=== PATIENT | female | born 1990 | race Caucasian/White ===

== ENCOUNTER 2020-02-23 05:05 | Inpatient (IN) | payer MEDICAID ==
[~2020-02-23] VITALS: Ht 160 cm; Wt 67.7 kg
[2020-02-23 09:06] LABS: BASOPHILS % (AUTO) 0.2 % (0.0-2.0); EOSINOPHILS % (AUTO) 0.3 % (1.0-6.0); HEMATOCRIT 38.3 % (36-46); HEMOGLOBIN 12.9 g/dL (12.0-16.0); LYMPHOCYTES # (AUTO) 1.8 K/uL (1.0-4.8); LYMPHOCYTES % (AUTO) 21.6 % (22.0-44.0); MEAN CORPUSCULAR HEMOGLOBIN 30.6 pg (26.0-34.0); MEAN CORPUSCULAR HGB CONC 33.6 G/dL (31.0-37.0); MEAN CORPUSCULAR VOLUME 91 fL (80-100); MONOCYTES # (AUTO) 0.5 K/uL (0.1-1.0); MONOCYTES % (AUTO) 5.7 % (2.0-9.0); NEUTROPHILS # (AUTO) 6.1 K/uL (1.8-7.7); NEUTROPHILS % (AUTO) 72.2 % (40.0-70.0); PLATELET COUNT (AUTO) 285 K/uL (150-450); RED BLOOD CELL COUNT(AUTO) 4.22 MIL/uL (4.00-5.20)
[2020-02-23 09:19] LABS: ANION GAP 11 mmol/L (8-16); CALCIUM, TOTAL 8.9 mg/dL (8.8-10.5); CARBON DIOXIDE 26 mmol/L (22-29); CHLORIDE 104 mmol/L (98-107); CREATININE 0.54 mg/dL (0.60-1.30); GLOMERULAR FILTR. RATE CALC > 60 mL/min (>60); GLUCOSE,RANDOM 103 mg/dL (70-110); SODIUM SERUM 141 mmol/L (136-145); UREA NITROGEN, BLOOD 11 mg/dL (7-18)
[2020-02-23 09:33] LABS: ALANINE AMINOTRANSFERASE 72 U/L (12-78); ALKALINE PHOSPHATASE 74 U/L (46-116); ASPARTATE AMINOTRANSFERASE 102 U/L (15-37); HCG,QUANTITATIVE < 1 mIU/mL (0-6); TOTAL PROTEIN, SERUM 7.2 g/dL (6.4-8.2)
[2020-02-23] MEDS ORDERED: OLANZapine 5 MG RAPDIS TABLET PO PRN (12:00)
[2020-02-23] MEDS ORDERED: LOPERAMIDE HCL 2 MG CAPSULE PO PRN (12:00)
[2020-02-23] MEDS ORDERED: GuaiFENesin/D-METHORPHAN [SUGAR-FREE] 200-20MG/10 ML SYRUP UDCUP PO PRN (12:00)
[2020-02-23] MEDS ORDERED: PROMETHAZINE HCL 25 MG TABLET PO PRN (12:00)
[2020-02-23] MEDS ORDERED: TUBERCULIN, PURIFIED PROTEIN DERIVATIVE 5 TU/0.1 ML SYRINGE ID ONE (12:00)
[2020-02-23] MEDS ORDERED: MAG HYDROX/AL HYDROX/SIMETH ES 30 ML SUSPENSION UDCUP PO PRN (12:00)
[2020-02-23] MEDS ORDERED: ACETAMINOPHEN 325 MG TABLET PO PRN (12:00)
[2020-02-23] MEDS ORDERED: MAGNESIUM HYDROXIDE SUSPENSION 30 ML UDCUP PO PRN (12:00)
[2020-02-23] MEDS ORDERED: HydrOXYzine PAMOATE 50 MG CAPSULE PO PRN (12:00)
[2020-02-23] MEDS ORDERED: ZOLPIDEM TARTRATE 10 MG TABLET PO PRN (12:00)
[2020-02-23] MEDS ORDERED: POTASSIUM CHLORIDE 20 MEQ ER TABLET PO ONE (13:30)
[2020-02-23 14:24] LABS: AMPHET/METH SCREEN,URINE POSITIVE (NEGATIVE); BARBITURATE SCREEN, URINE NEGATIVE (NEGATIVE); BENZODIAZEPINES SCREEN,URINE NEGATIVE (NEGATIVE); CANNABINOID SCREEN,URINE POSITIVE (NEGATIVE); COCAINE SCREEN,URINE NEGATIVE (NEGATIVE); METHADONE SCREEN, URINE NEGATIVE (NEGATIVE); OPIATE SCREEN,URINE NEGATIVE (NEGATIVE)
[2020-02-23 14:25] LABS: PHENCYCLIDINE SCREEN,URINE NEGATIVE (NEGATIVE)
[2020-02-23] MEDS ORDERED: OLANZapine 5 MG RAPDIS TABLET PO SCH (21:00)
[2020-02-23 22:34] VITALS: BP 121/66
[2020-02-23] MEDS: LITHIUM CARBONATE 300 MG CAPSULE PO SCH (22:48)
[2020-02-23] MEDS: THIAMINE 100 MG TABLET PO SCH (22:48)
[2020-02-24 00:34] VITALS: BP 118/68
[2020-02-24] MEDS: MULTIVITAMINS WITH MINERALS, THERAPEUTIC TABLET PO SCH (09:01)
[2020-02-24] MEDS: FOLIC ACID 1 MG TABLET PO SCH (09:01)
[2020-02-24] MEDS: THIAMINE 100 MG TABLET PO SCH ×2 (09:01→16:39)
[2020-02-24] MEDS: FLUoxetine HCL 20 MG CAPSULE PO SCH (09:01)
[2020-02-24] MEDS: NALTREXONE HCL 50 MG TABLET PO SCH (09:02)
[2020-02-24] MEDS: NICOTINE 21 MG/24 HOUR PATCH TD SCH (09:02)
[2020-02-24] MEDS: LITHIUM CARBONATE 300 MG CAPSULE PO SCH ×2 (09:05→16:39)
[2020-02-24 09:20] LABS: ANION GAP 9 mmol/L (8-16); CALCIUM, TOTAL 8.7 mg/dL (8.8-10.5); CARBON DIOXIDE 26 mmol/L (22-29); CHLORIDE 107 mmol/L (98-107); CHOL/HDL RATIO 2.8 (3.9-5.7); CHOLESTEROL 104 mg/dL (131-200); CREATININE 0.59 mg/dL (0.60-1.30); GLOMERULAR FILTR. RATE CALC > 60 mL/min (>60); GLUCOSE,RANDOM 93 mg/dL (70-110); HDL CHOLESTEROL 37 mg/dL (40-60); LDL CHOL (CALC.) 53 mg/dL (0-130); POTASSIUM 3.2 mmol/L (3.5-5.1); SODIUM SERUM 142 mmol/L (136-145); THYROID STIMULATING HORMONE 0.54 uIU/mL (0.36-3.74); TRIGLYCERIDES 69 mg/dL (15-150); UREA NITROGEN, BLOOD 9 mg/dL (7-18)
[2020-02-24] MEDS ORDERED: POTASSIUM CHLORIDE 20 MEQ ER TABLET PO ONE (12:30)
[2020-02-24 16:10] VITALS: BP 106/63
[2020-02-24] MEDS: OLANZapine 10 MG RAPDIS TABLET PO SCH (20:48)
[2020-02-25 00:16] VITALS: BP 140/67
[2020-02-25 08:20] VITALS: BP 104/62
[2020-02-25] MEDS: LITHIUM CARBONATE 300 MG CAPSULE PO SCH ×2 (08:30→16:33)
[2020-02-25] MEDS: MULTIVITAMINS WITH MINERALS, THERAPEUTIC TABLET PO SCH (08:30)
[2020-02-25] MEDS: NALTREXONE HCL 50 MG TABLET PO SCH (08:30)
[2020-02-25] MEDS: FLUoxetine HCL 20 MG CAPSULE PO SCH (08:30)
[2020-02-25] MEDS: THIAMINE 100 MG TABLET PO SCH ×2 (08:31→16:33)
[2020-02-25] MEDS: FOLIC ACID 1 MG TABLET PO SCH (08:31)
[2020-02-25] MEDS: NICOTINE 21 MG/24 HOUR PATCH TD SCH (08:37)
[2020-02-25 16:28] VITALS: BP 103/60
[2020-02-25] MEDS: OLANZapine 10 MG RAPDIS TABLET PO SCH (20:15)
[2020-02-26 00:40] VITALS: BP 117/72
[2020-02-26 08:11] VITALS: BP 108/65
[2020-02-26] MEDS: LITHIUM CARBONATE 300 MG CAPSULE PO SCH ×2 (08:25→16:19)
[2020-02-26] MEDS: FOLIC ACID 1 MG TABLET PO SCH (08:25)
[2020-02-26] MEDS: MULTIVITAMINS WITH MINERALS, THERAPEUTIC TABLET PO SCH (08:25)
[2020-02-26] MEDS: FLUoxetine HCL 20 MG CAPSULE PO SCH (08:26)
[2020-02-26] MEDS: NALTREXONE HCL 50 MG TABLET PO SCH (08:26)
[2020-02-26] MEDS: THIAMINE 100 MG TABLET PO SCH ×2 (08:26→16:19)
[2020-02-26] MEDS: NICOTINE 21 MG/24 HOUR PATCH TD SCH (08:31)
[2020-02-26 16:32] VITALS: BP 118/49
[2020-02-26] MEDS: OLANZapine 10 MG RAPDIS TABLET PO SCH (20:05)
[2020-02-26] MEDS: LORazepam 2 MG TABLET PO PRN (22:27)
[2020-02-27 00:04] VITALS: BP 109/68
[2020-02-27 08:20] VITALS: BP 108/70
[2020-02-27] MEDS: THIAMINE 100 MG TABLET PO SCH ×2 (08:34→16:13)
[2020-02-27] MEDS: FOLIC ACID 1 MG TABLET PO SCH (08:34)
[2020-02-27] MEDS: LITHIUM CARBONATE 300 MG CAPSULE PO SCH ×2 (08:34→16:13)
[2020-02-27] MEDS: NALTREXONE HCL 50 MG TABLET PO SCH (08:34)
[2020-02-27] MEDS: MULTIVITAMINS WITH MINERALS, THERAPEUTIC TABLET PO SCH (08:34)
[2020-02-27] MEDS: FLUoxetine HCL 20 MG CAPSULE PO SCH (08:34)
[2020-02-27] MEDS: NICOTINE 21 MG/24 HOUR PATCH TD SCH (08:39)
[2020-02-27 16:58] VITALS: BP 102/65
[2020-02-27] MEDS: OLANZapine 10 MG RAPDIS TABLET PO SCH (20:21)
[2020-02-28 03:20] VITALS: BP 122/77
[2020-02-28 08:28] VITALS: BP 108/62
[2020-02-28] MEDS: LITHIUM CARBONATE 300 MG CAPSULE PO SCH ×2 (08:29→16:05)
[2020-02-28] MEDS: NALTREXONE HCL 50 MG TABLET PO SCH (08:30)
[2020-02-28] MEDS: FOLIC ACID 1 MG TABLET PO SCH (08:30)
[2020-02-28] MEDS: MULTIVITAMINS WITH MINERALS, THERAPEUTIC TABLET PO SCH (08:30)
[2020-02-28] MEDS: THIAMINE 100 MG TABLET PO SCH ×2 (08:30→16:05)
[2020-02-28] MEDS: FLUoxetine HCL 20 MG CAPSULE PO SCH (08:30)
[2020-02-28] MEDS: NICOTINE 21 MG/24 HOUR PATCH TD SCH (08:36)
[2020-02-28 16:06] VITALS: BP 109/65
[2020-02-28] MEDS: LORazepam 2 MG TABLET PO PRN (18:00)
[2020-02-28] MEDS: OLANZapine 10 MG RAPDIS TABLET PO SCH (20:27)
[2020-02-29 01:22] VITALS: BP 110/63
[2020-02-29] MEDS: LITHIUM CARBONATE 300 MG CAPSULE PO SCH (08:34)
[2020-02-29] MEDS: MULTIVITAMINS WITH MINERALS, THERAPEUTIC TABLET PO SCH (08:34)
[2020-02-29] MEDS: FLUoxetine HCL 20 MG CAPSULE PO SCH (08:34)
[2020-02-29] MEDS: THIAMINE 100 MG TABLET PO SCH (08:34)
[2020-02-29] MEDS: NALTREXONE HCL 50 MG TABLET PO SCH (08:34)
[2020-02-29] MEDS: FOLIC ACID 1 MG TABLET PO SCH (08:34)
[2020-02-29] MEDS: NICOTINE 21 MG/24 HOUR PATCH TD SCH (08:35)
[2020-02-29 08:41] VITALS: BP 127/62
[2020-02-29] MEDS ORDERED: FLUO-191 PO (08:57)
[2020-02-29] MEDS ORDERED: OLAN10TA6 PO (08:57)
[2020-02-29] MEDS ORDERED: NALT50TA6 PO (08:58)
[2020-02-29] MEDS ORDERED: LITH300C3 PO ×2 (08:58→10:08)
== END 2020-02-29 10:43 | disposition home or self-care (01) | DRG 750 ==
LOC: EMS 05:05 → AHU 12:01 → B2S 22:21 → B3A 02-28 21:33
PROVIDERS: ADMIT Psychiatry & Neurology Psychiatry; ATTEND Psychiatry & Neurology Psychiatry
DX: F25.0 Schizoaffective disorder, bipolar type (principal); R45.851 Suicidal ideations; Z59.0 Homelessness; E87.6 Hypokalemia; Z65.3 Problems related to other legal circumstances; Z79.899 Other long term (current) drug therapy; Z87.891 Personal history of nicotine dependence; Z91.19 Patient's noncompliance with other medical treatment and regimen; Z91.5 Personal history of self-harm
CPT/HCPCS: 83036; 84132; 84439; 84443; 86592; G0480

== ENCOUNTER 2020-03-12 14:44 | Inpatient (IN) | payer MEDICAID ==
[~2020-03-12] VITALS: Ht 160 cm; Wt 73.3 kg
[~2020-03-12 14:44] MED LIST: FLUO-191 PO; LITH300C3 PO; NALT50TA6 PO; OLAN10TA6 PO
[2020-03-12 16:56] LABS: BASOPHILS % (AUTO) 0.1 % (0.0-2.0); EOSINOPHILS % (AUTO) 0.6 % (1.0-6.0); HEMATOCRIT 37.5 % (36-46); HEMOGLOBIN 12.4 g/dL (12.0-16.0); LYMPHOCYTES # (AUTO) 2.5 K/uL (1.0-4.8); LYMPHOCYTES % (AUTO) 33.2 % (22.0-44.0); MEAN CORPUSCULAR HEMOGLOBIN 30.8 pg (26.0-34.0); MEAN CORPUSCULAR HGB CONC 33.1 G/dL (31.0-37.0); MEAN CORPUSCULAR VOLUME 93 fL (80-100); MONOCYTES # (AUTO) 0.6 K/uL (0.1-1.0); MONOCYTES % (AUTO) 7.8 % (2.0-9.0); NEUTROPHILS # (AUTO) 4.3 K/uL (1.8-7.7); NEUTROPHILS % (AUTO) 58.3 % (40.0-70.0); PLATELET COUNT (AUTO) 384 K/uL (150-450); RED BLOOD CELL COUNT(AUTO) 4.03 MIL/uL (4.00-5.20); RED CELL DISTRIBUTION WIDTH 14.2 % (11.5-14.5)
[2020-03-12 17:08] LABS: ANION GAP 10 mmol/L (8-16); CALCIUM, TOTAL 8.7 mg/dL (8.8-10.5); CARBON DIOXIDE 27 mmol/L (22-29); CHLORIDE 105 mmol/L (98-107); CREATININE 0.42 mg/dL (0.60-1.30); GLOMERULAR FILTR. RATE CALC > 60 mL/min (>60); GLUCOSE,RANDOM 76 mg/dL (70-110); POTASSIUM 3.2 mmol/L (3.5-5.1); SODIUM SERUM 142 mmol/L (136-145); UREA NITROGEN, BLOOD 7 mg/dL (7-18)
[2020-03-12 17:14] LABS: ALANINE AMINOTRANSFERASE 31 U/L (12-78); ALBUMIN 3.9 g/dL (3.4-5.0); ALKALINE PHOSPHATASE 61 U/L (46-116); ASPARTATE AMINOTRANSFERASE 22 U/L (15-37); BILIRUBIN,TOTAL 0.5 mg/dL (0.1-1.0); TOTAL PROTEIN, SERUM 7.4 g/dL (6.4-8.2)
[2020-03-12 17:31] LABS: LITHIUM < 0.20 mmol/L (0.60-1.20)
[2020-03-12] MEDS ORDERED: POTASSIUM CHLORIDE 20 MEQ ER TABLET PO ONE (18:30)
[2020-03-12] MEDS ORDERED: AZITHROMYCIN 500 MG TABLET PO ONE (18:45)
[2020-03-12] MEDS ORDERED: CefTRIAXone SODIUM 1 GM/VIAL IM ONE (18:45)
[2020-03-12] MEDS ORDERED: LIDOCAINE 1% 10 ML VIAL INJ ONE (19:00)
[2020-03-12] MEDS ORDERED: OLANZapine 5 MG RAPDIS TABLET PO PRN (20:00)
[2020-03-12 21:43] VITALS: BP 112/71
[2020-03-13 07:19] LABS: CHOL/HDL RATIO 2.1 (3.9-5.7)
[2020-03-13 08:53] LABS: APPEARANCE,URINE CLOUDY (CLEAR); BILIRUBIN,URINE NEGATIVE (NEGATIVE); GLUCOSE, URINE (UA) NEGATIVE (NEGATIVE); KETONES,URINE NEGATIVE (NEGATIVE); LEUKOCYTE ESTERASE ,URINE NEGATIVE (NEGATIVE); NITRATE,URINE NEGATIVE (NEGATIVE); OCCULT BLOOD,URINE NEGATIVE (NEGATIVE); PROTEIN,URINE NEGATIVE (NEGATIVE); UROBILINOGEN,URINE 0.2 mg/dL (<=1.0)
[2020-03-13 09:06] LABS: BACTERIA,URINE None Seen /HPF (None Seen); RBC,URINE None Seen /HPF (0-2); SQUAMOUS EPITHELIAL CELL,UR Few /LPF (None Seen)
[2020-03-13 09:40] VITALS: BP 128/78
[2020-03-13] MEDS: LORazepam 2 MG TABLET PO PRN (16:12)
[2020-03-13 17:04] VITALS: BP 98/55
[2020-03-14 01:46] VITALS: BP 125/86
[2020-03-14] MEDS: ZOLPIDEM TARTRATE 10 MG TABLET PO PRN (01:47)
[2020-03-14] MEDS: LITHIUM CARBONATE 300 MG CAPSULE PO SCH ×2 (08:29→16:50)
[2020-03-14] MEDS: FLUoxetine HCL 20 MG CAPSULE PO SCH (08:30)
[2020-03-14 10:11] VITALS: BP 117/71
[2020-03-14] MEDS: LORazepam 2 MG TABLET PO PRN (11:15)
[2020-03-14 16:00] VITALS: BP 113/63
[2020-03-14] MEDS: OLANZapine 10 MG TABLET PO SCH (20:22)
[2020-03-14] MEDS ORDERED: POTASSIUM CHLORIDE 20 MEQ ER TABLET PO ONE (23:45)
[2020-03-15] MEDS: LITHIUM CARBONATE 300 MG CAPSULE PO SCH ×2 (08:05→16:15)
[2020-03-15] MEDS: FLUoxetine HCL 20 MG CAPSULE PO SCH (08:06)
[2020-03-15 08:21] LABS: ANION GAP 7 mmol/L (8-16); CALCIUM, TOTAL 8.5 mg/dL (8.8-10.5); CARBON DIOXIDE 24 mmol/L (22-29); CHLORIDE 106 mmol/L (98-107); CREATININE 0.44 mg/dL (0.60-1.30); GLOMERULAR FILTR. RATE CALC > 60 mL/min (>60); GLUCOSE,RANDOM 104 mg/dL (70-110); POTASSIUM 4.1 mmol/L (3.5-5.1); SODIUM SERUM 137 mmol/L (136-145); UREA NITROGEN, BLOOD 13 mg/dL (7-18)
[2020-03-15 09:27] VITALS: BP 122/69
[2020-03-15] MEDS ORDERED: ACETAMINOPHEN 325 MG TABLET PO PRN (11:00)
[2020-03-15] MEDS ORDERED: MAGNESIUM HYDROXIDE SUSPENSION 30 ML UDCUP PO PRN (11:00)
[2020-03-15] MEDS ORDERED: MAG HYDROX/AL HYDROX/SIMETH ES 30 ML SUSPENSION UDCUP PO PRN (11:00)
[2020-03-15] MEDS ORDERED: GuaiFENesin/D-METHORPHAN [SUGAR-FREE] 200-20MG/10 ML SYRUP UDCUP PO PRN (11:00)
[2020-03-15] MEDS ORDERED: LOPERAMIDE HCL 2 MG CAPSULE PO PRN (11:00)
[2020-03-15] MEDS ORDERED: PROMETHAZINE HCL 25 MG TABLET PO PRN (11:00)
[2020-03-15] MEDS ORDERED: PALIPERIDONE PALMITATE 234 MG/1.5 ML SYRINGE IM ONE (13:00)
[2020-03-15] MEDS: THIAMINE 100 MG TABLET PO SCH (16:15)
[2020-03-15 16:24] VITALS: BP 119/68
[2020-03-15] MEDS: OLANZapine 10 MG TABLET PO SCH (20:10)
[2020-03-16 08:00] VITALS: BP 133/65
[2020-03-16] MEDS: MULTIVITAMINS WITH MINERALS, THERAPEUTIC TABLET PO SCH (09:11)
[2020-03-16] MEDS: FOLIC ACID 1 MG TABLET PO SCH (09:11)
[2020-03-16] MEDS: THIAMINE 100 MG TABLET PO SCH ×2 (09:11→16:17)
[2020-03-16] MEDS: LITHIUM CARBONATE 300 MG CAPSULE PO SCH ×2 (09:11→16:17)
[2020-03-16] MEDS: FLUoxetine HCL 20 MG CAPSULE PO SCH (09:12)
[2020-03-16 17:10] VITALS: BP 105/56
[2020-03-16] MEDS: OLANZapine 10 MG TABLET PO SCH (20:21)
[2020-03-16] MEDS ORDERED: FLUCONAZOLE 150 MG TABLET PO ONE (21:30)
[2020-03-17 01:56] VITALS: BP 123/70
[2020-03-17 08:00] VITALS: BP 119/65
[2020-03-17] MEDS: MULTIVITAMINS WITH MINERALS, THERAPEUTIC TABLET PO SCH (09:43)
[2020-03-17] MEDS: FLUoxetine HCL 20 MG CAPSULE PO SCH (09:43)
[2020-03-17] MEDS: THIAMINE 100 MG TABLET PO SCH ×2 (09:44→16:28)
[2020-03-17] MEDS: FOLIC ACID 1 MG TABLET PO SCH (09:44)
[2020-03-17] MEDS: LITHIUM CARBONATE 300 MG CAPSULE PO SCH ×2 (09:44→16:28)
[2020-03-17] MEDS: LORazepam 2 MG TABLET PO PRN (18:39)
[2020-03-17 19:02] VITALS: BP 103/64
[2020-03-17] MEDS: OLANZapine 10 MG TABLET PO SCH (20:28)
[2020-03-18 08:16] VITALS: BP 116/63
[2020-03-18] MEDS: MULTIVITAMINS WITH MINERALS, THERAPEUTIC TABLET PO SCH (08:31)
[2020-03-18] MEDS: THIAMINE 100 MG TABLET PO SCH ×2 (08:31→16:09)
[2020-03-18] MEDS: LITHIUM CARBONATE 300 MG CAPSULE PO SCH ×3 (08:32→16:09)
[2020-03-18] MEDS: FOLIC ACID 1 MG TABLET PO SCH (08:32)
[2020-03-18] MEDS: FLUoxetine HCL 20 MG CAPSULE PO SCH (08:32)
[2020-03-18] MEDS: LORazepam 2 MG TABLET PO PRN ×2 (10:40→16:23)
[2020-03-18 16:03] VITALS: BP 107/55
[2020-03-18] MEDS: HydrOXYzine PAMOATE 50 MG CAPSULE PO PRN (16:23)
[2020-03-19] MEDS: LORazepam 2 MG TABLET PO PRN ×3 (07:05→19:28)
[2020-03-19] MEDS: HydrOXYzine PAMOATE 50 MG CAPSULE PO PRN ×2 (07:05→07:06)
[2020-03-19] MEDS ORDERED: LURASIDONE HCL 40 MG TABLET PO SCH (07:30)
[2020-03-19] MEDS ORDERED: PALIPERIDONE PALMITATE 156 MG/ML SYRINGE IM ONE (09:00)
[2020-03-19 09:29] VITALS: BP 144/81
[2020-03-19] MEDS: MULTIVITAMINS WITH MINERALS, THERAPEUTIC TABLET PO SCH (09:36)
[2020-03-19] MEDS: FLUoxetine HCL 20 MG CAPSULE PO SCH (09:36)
[2020-03-19] MEDS: LITHIUM CARBONATE 300 MG CAPSULE PO SCH ×3 (09:36→16:03)
[2020-03-19] MEDS: THIAMINE 100 MG TABLET PO SCH ×2 (09:36→16:04)
[2020-03-19] MEDS: BusPIRone HCL 10 MG TABLET PO SCH ×3 (09:36→16:03)
[2020-03-19] MEDS: FOLIC ACID 1 MG TABLET PO SCH (09:37)
[2020-03-19 16:00] VITALS: BP 112/66
[2020-03-20] MEDS: LURASIDONE HCL 80 MG TABLET PO SCH (06:58)
[2020-03-20 08:00] VITALS: BP 131/78
[2020-03-20] MEDS: BusPIRone HCL 10 MG TABLET PO SCH ×3 (08:52→16:35)
[2020-03-20] MEDS: LITHIUM CARBONATE 300 MG CAPSULE PO SCH ×3 (08:52→16:35)
[2020-03-20] MEDS: FLUoxetine HCL 20 MG CAPSULE PO SCH (08:52)
[2020-03-20] MEDS: FOLIC ACID 1 MG TABLET PO SCH (08:52)
[2020-03-20] MEDS: THIAMINE 100 MG TABLET PO SCH ×2 (08:53→16:35)
[2020-03-20] MEDS: MULTIVITAMINS WITH MINERALS, THERAPEUTIC TABLET PO SCH (08:53)
[2020-03-20] MEDS: LORazepam 2 MG TABLET PO PRN (11:53)
[2020-03-20] MEDS ORDERED: MULT-723 PO (13:45)
[2020-03-20] MEDS ORDERED: THIA100T80 PO (13:45)
[2020-03-20] MEDS ORDERED: FOLI0.4T92 PO (13:45)
[2020-03-20 17:00] VITALS: BP 130/80
[2020-03-21 01:22] VITALS: BP 120/82
[2020-03-21] MEDS: LURASIDONE HCL 80 MG TABLET PO SCH (06:39)
[2020-03-21] MEDS: MULTIVITAMINS WITH MINERALS, THERAPEUTIC TABLET PO SCH (08:26)
[2020-03-21] MEDS: BusPIRone HCL 10 MG TABLET PO SCH ×3 (08:26→16:27)
[2020-03-21] MEDS: LITHIUM CARBONATE 300 MG CAPSULE PO SCH ×3 (08:27→16:27)
[2020-03-21] MEDS: FOLIC ACID 1 MG TABLET PO SCH (08:27)
[2020-03-21] MEDS: THIAMINE 100 MG TABLET PO SCH ×2 (08:27→16:27)
[2020-03-21] MEDS: FLUoxetine HCL 20 MG CAPSULE PO SCH (08:27)
[2020-03-21 09:47] VITALS: BP 128/70
[2020-03-21] MEDS ORDERED: NALT50TA PO (10:06)
[2020-03-21] MEDS ORDERED: LURA80TA2 PO (10:06)
[2020-03-21] MEDS ORDERED: LITH300C3 PO (10:06)
[2020-03-21] MEDS ORDERED: BUSP10TA23 PO (10:06)
[2020-03-21] MEDS ORDERED: FLUO-191 PO (10:06)
[2020-03-21] MEDS: LORazepam 2 MG TABLET PO PRN (14:46)
[2020-03-21 16:00] VITALS: BP 116/69
[2020-03-21] MEDS: ZOLPIDEM TARTRATE 10 MG TABLET PO PRN (21:25)
[2020-03-22] MEDS: LURASIDONE HCL 80 MG TABLET PO SCH (06:35)
[2020-03-22 09:08] VITALS: BP 129/89
[2020-03-22] MEDS: BusPIRone HCL 10 MG TABLET PO SCH (09:10)
[2020-03-22] MEDS: FLUoxetine HCL 20 MG CAPSULE PO SCH (09:10)
[2020-03-22] MEDS: LITHIUM CARBONATE 300 MG CAPSULE PO SCH (09:10)
[2020-03-22] MEDS: MULTIVITAMINS WITH MINERALS, THERAPEUTIC TABLET PO SCH (09:10)
[2020-03-22] MEDS: THIAMINE 100 MG TABLET PO SCH (09:10)
[2020-03-22] MEDS: FOLIC ACID 1 MG TABLET PO SCH (09:10)
== END 2020-03-22 09:36 | disposition home or self-care (01) | DRG 885 ==
LOC: EMS 14:47 → 3EI 19:49 → UNDOADMIN 20:56 → 3EI 20:56
PROVIDERS: ADMIT Psychiatry & Neurology Psychiatry; ATTEND Psychiatry & Neurology Psychiatry
DX: F25.1 Schizoaffective disorder, depressive type (principal); R45.851 Suicidal ideations; F17.210 Nicotine dependence, cigarettes, uncomplicated; E87.6 Hypokalemia; Z91.19 Patient's noncompliance with other medical treatment and regimen; Z59.0 Homelessness
CPT/HCPCS: 80074; 87081; G0480; J0696; J3490

== ENCOUNTER 2020-04-10 06:31 | Emergency (ER) | payer MEDICAID ==
[~2020-04-10] VITALS: Ht 167.6 cm; Wt 68.2 kg
[~2020-04-10 06:31] MED LIST changes: +BUSP10TA23 PO; +LURA80TA2 PO; +NALT50TA PO; -NALT50TA6 PO; -OLAN10TA6 PO
[2020-04-10] MEDS ORDERED: ACETAMINOPHEN 325 MG TABLET PO ONE (08:30)
[2020-04-10 08:38] LABS: BASOPHILS % (AUTO) 0.3 % (0.0-2.0); EOSINOPHILS % (AUTO) 0.7 % (1.0-6.0); HEMATOCRIT 37.4 % (36-46); HEMOGLOBIN 12.4 g/dL (12.0-16.0); LYMPHOCYTES # (AUTO) 1.8 K/uL (1.0-4.8); LYMPHOCYTES % (AUTO) 15.6 % (22.0-44.0); MEAN CORPUSCULAR HEMOGLOBIN 30.7 pg (26.0-34.0); MEAN CORPUSCULAR HGB CONC 33.1 G/dL (31.0-37.0); MEAN CORPUSCULAR VOLUME 93 fL (80-100); MONOCYTES # (AUTO) 0.9 K/uL (0.1-1.0); MONOCYTES % (AUTO) 8.2 % (2.0-9.0); NEUTROPHILS # (AUTO) 8.6 K/uL (1.8-7.7); NEUTROPHILS % (AUTO) 75.2 % (40.0-70.0); PLATELET COUNT (AUTO) 354 K/uL (150-450); RED BLOOD CELL COUNT(AUTO) 4.03 MIL/uL (4.00-5.20); RED CELL DISTRIBUTION WIDTH 13.5 % (11.5-14.5)
[2020-04-10 08:49] LABS: ANION GAP 17 mmol/L (8-16); CALCIUM, TOTAL 8.7 mg/dL (8.8-10.5); CARBON DIOXIDE 21 mmol/L (22-29); CHLORIDE 99 mmol/L (98-107); CREATININE 0.53 mg/dL (0.60-1.30); GLOMERULAR FILTR. RATE CALC > 60 mL/min (>60); GLUCOSE,RANDOM 119 mg/dL (70-110); LITHIUM < 0.20 mmol/L (0.60-1.20); POTASSIUM 3.4 mmol/L (3.5-5.1); SODIUM SERUM 137 mmol/L (136-145); UREA NITROGEN, BLOOD 15 mg/dL (7-18)
[2020-04-10 08:55] LABS: ALANINE AMINOTRANSFERASE 57 U/L (12-78); ALBUMIN 4.4 g/dL (3.4-5.0); ALKALINE PHOSPHATASE 76 U/L (46-116); ASPARTATE AMINOTRANSFERASE 136 U/L (15-37); BILIRUBIN,TOTAL 0.9 mg/dL (0.1-1.0); TOTAL PROTEIN, SERUM 8.2 g/dL (6.4-8.2)
[2020-04-10] MEDS ORDERED: ACETAMINOPHEN 325 MG TABLET PO PRN ×2 (11:30→15:45)
[2020-04-10] MEDS ORDERED: 0.9% SODIUM CHLORIDE 10 ML SYRINGE IVP PRN (11:30)
[2020-04-10] MEDS ORDERED: ONDANSETRON HCL 4 MG/2 ML VIAL IVP PRN ×2 (11:30→15:45)
[2020-04-10 11:34] LABS: AMPHET/METH SCREEN,URINE POSITIVE (NEGATIVE); BARBITURATE SCREEN, URINE NEGATIVE (NEGATIVE); BENZODIAZEPINES SCREEN,URINE NEGATIVE (NEGATIVE); CANNABINOID SCREEN,URINE POSITIVE (NEGATIVE); COCAINE SCREEN,URINE NEGATIVE (NEGATIVE); METHADONE SCREEN, URINE NEGATIVE (NEGATIVE); OPIATE SCREEN,URINE NEGATIVE (NEGATIVE)
[2020-04-10 11:36] LABS: PHENCYCLIDINE SCREEN,URINE NEGATIVE (NEGATIVE)
[2020-04-10] MEDS ORDERED: POTASSIUM CHL 10 MEQ/WATER 50 ML IV PRN (15:45)
[2020-04-10] MEDS ORDERED: MORPHINE SULFATE 2 MG/ML SYRINGE IVP PRN (15:45)
[2020-04-10] MEDS ORDERED: HYDROCODONE/ACETAMINOPHEN 5-325 MG TABLET PO PRN (15:45)
[2020-04-10] MEDS ORDERED: BISACODYL 10 MG RECTAL RECTAL SUPPOSITORY PR PRN (15:45)
[2020-04-10] MEDS ORDERED: POTASSIUM CHLORIDE 20 MEQ ER TABLET PO PRN (15:45)
[2020-04-10] MEDS ORDERED: ZOLPIDEM TARTRATE 5 MG TABLET PO PRN (15:45)
[2020-04-10] MEDS ORDERED: MAGNESIUM HYDROXIDE SUSPENSION 30 ML UDCUP PO PRN (15:45)
[2020-04-10] MEDS ORDERED: LITHIUM CARBONATE 300 MG CAPSULE PO SCH (16:00)
[2020-04-10] MEDS ORDERED: HEPARIN SODIUM,PORCINE 5,000 UNITS/ML VIAL SQ SCH (16:00)
[2020-04-10] MEDS ORDERED: BusPIRone HCL 10 MG TABLET PO SCH (16:00)
[2020-04-10 20:32] VITALS: BP 119/68
[2020-04-10] MEDS ORDERED: DOCUSATE SODIUM 100 MG CAPSULE PO SCH (21:00)
[2020-04-11] MEDS ORDERED: LURASIDONE HCL 80 MG TABLET PO SCH (08:00)
[2020-04-11] MEDS ORDERED: NALTREXONE HCL 50 MG TABLET PO SCH (09:00)
[2020-04-11] MEDS ORDERED: FLUoxetine HCL 20 MG CAPSULE PO SCH (09:00)
[2020-04-11] MEDS ORDERED: PANTOPRAZOLE SODIUM 40 MG DR TABLET PO SCH (09:00)
== END 2020-04-10 20:34 | disposition home or self-care (01) ==
LOC: EMS 06:31 → UNDOADMIN 15:36 → 6N 15:36 → EMS 20:34
DX: Z03.818 Encounter for observation for suspected exposure to other biological agents ruled out (principal); F25.9 Schizoaffective disorder, unspecified; F17.210 Nicotine dependence, cigarettes, uncomplicated
CPT/HCPCS: 36415; 71045; 80053; 80178; 80307; 85025; 87430; 99285; G0480; U0003

== ENCOUNTER 2020-05-06 09:42 | Emergency (ER) | payer MEDICAID, OTHER ==
[~2020-05-06] VITALS: Ht 160 cm; Wt 68.2 kg
[2020-05-06 10:10] LABS: APPEARANCE,URINE CLOUDY (CLEAR); BILIRUBIN,URINE NEGATIVE (NEGATIVE); GLUCOSE, URINE (UA) NEGATIVE (NEGATIVE); KETONES,URINE NEGATIVE (NEGATIVE); LEUKOCYTE ESTERASE ,URINE NEGATIVE (NEGATIVE); NITRATE,URINE NEGATIVE (NEGATIVE); OCCULT BLOOD,URINE NEGATIVE (NEGATIVE); PH,URINE 5.5 (5.0-8.0); PROTEIN,URINE NEGATIVE (NEGATIVE); UROBILINOGEN,URINE 0.2 mg/dL (<=1.0)
[2020-05-06 10:15] LABS: BACTERIA,URINE None Seen /HPF (None Seen); RBC,URINE None Seen /HPF (0-2); SQUAMOUS EPITHELIAL CELL,UR Moderate /LPF (None Seen); WBC,URINE None Seen /HPF (0-5)
[2020-05-06] MEDS ORDERED: CefTRIAXone SODIUM 1 GM/VIAL IM ONE (10:30)
[2020-05-06] MEDS ORDERED: AZITHROMYCIN 500 MG TABLET PO ONE (10:30)
[2020-05-06] MEDS ORDERED: FLUCONAZOLE 150 MG TABLET PO ONE (10:30)
[2020-05-06] MEDS ORDERED: LIDOCAINE/PF 1% 5 ML VIAL INJ ONE (10:30)
[2020-05-06 11:18] VITALS: BP 111/72
== END 2020-05-06 11:23 | disposition home or self-care (01) ==
LOC: EMS 09:45
DX: N89.8 Other specified noninflammatory disorders of vagina (principal); F31.9 Bipolar disorder, unspecified; F20.9 Schizophrenia, unspecified; F17.210 Nicotine dependence, cigarettes, uncomplicated
CPT/HCPCS: 81001; 84703; 96372; 99283; J0696; J2001

== ENCOUNTER 2020-07-28 17:02 | Inpatient (IN) | payer MEDICAID, OTHER ==
[~2020-07-28] VITALS: Ht 160 cm; Wt 68.1 kg
[2020-07-28] MEDS ORDERED: LORazepam 2 MG/ML VIAL IM ONE (17:45)
[2020-07-28] MEDS ORDERED: HALOPERIDOL LACTATE 5 MG/ML VIAL IM ONE (17:45)
[2020-07-28] MEDS ORDERED: DiphenhydrAMINE HCL 50 MG/ML VIAL IM ONE (17:45)
[2020-07-28 18:08] LABS: BASOPHILS % (AUTO) 0.4 % (0.0-2.0); EOSINOPHILS % (AUTO) 0.2 % (1.0-6.0); HEMATOCRIT 41.4 % (36-46); HEMOGLOBIN 13.8 g/dL (12.0-16.0); LYMPHOCYTES # (AUTO) 2.9 K/uL (1.0-4.8); LYMPHOCYTES % (AUTO) 22.6 % (22.0-44.0); MEAN CORPUSCULAR HEMOGLOBIN 30.7 pg (26.0-34.0); MEAN CORPUSCULAR HGB CONC 33.4 G/dL (31.0-37.0); MEAN CORPUSCULAR VOLUME 92 fL (80-100); MONOCYTES # (AUTO) 1.1 K/uL (0.1-1.0); MONOCYTES % (AUTO) 8.8 % (2.0-9.0); NEUTROPHILS # (AUTO) 8.8 K/uL (1.8-7.7); PLATELET COUNT (AUTO) 337 K/uL (150-450); RED CELL DISTRIBUTION WIDTH 13.2 % (11.5-14.5)
[2020-07-28 18:21] LABS: ANION GAP 9 mmol/L (8-16); CALCIUM, TOTAL 10.2 mg/dL (8.8-10.5); CARBON DIOXIDE 28 mmol/L (22-29); CHLORIDE 100 mmol/L (98-107); GLOMERULAR FILTR. RATE CALC > 60 mL/min (>60); GLUCOSE,RANDOM 121 mg/dL (70-110); POTASSIUM 3.8 mmol/L (3.5-5.1); SODIUM SERUM 137 mmol/L (136-145); UREA NITROGEN, BLOOD 17 mg/dL (7-18)
[2020-07-28 18:24] LABS: LITHIUM < 0.20 mmol/L (0.60-1.20)
[2020-07-28 18:25] LABS: ALANINE AMINOTRANSFERASE 32 U/L (12-78); ALBUMIN 4.9 g/dL (3.4-5.0); ALKALINE PHOSPHATASE 78 U/L (46-116); ASPARTATE AMINOTRANSFERASE 28 U/L (15-37); BILIRUBIN,TOTAL 0.8 mg/dL (0.1-1.0); TOTAL PROTEIN, SERUM 8.1 g/dL (6.4-8.2)
[2020-07-28] MEDS ORDERED: ZOLPIDEM TARTRATE 10 MG TABLET PO PRN (19:45)
[2020-07-28] MEDS ORDERED: HALOPERIDOL 5 MG TABLET PO PRN (19:45)
[2020-07-28 21:07] LABS: COVID AG,FIA SOURCE NASOPHARYNGEAL
[2020-07-29] MEDS ORDERED: INFLUENZA VIRUS VACCINE QVS 2020-21 (6MO+)/PF 60 MCG/0.5 ML SYRINGE IM ONE (00:45)
[2020-07-29 08:14] VITALS: BP 110/60
[2020-07-29] MEDS ORDERED: LOPERAMIDE HCL 2 MG CAPSULE PO PRN (09:00)
[2020-07-29] MEDS ORDERED: ALBUTEROL SULFATE HFA 90 MCG/PUFF 8 GM INHALER IH PRN (09:00)
[2020-07-29] MEDS ORDERED: ONDANSETRON HCL 4 MG TABLET PO PRN (09:00)
[2020-07-29] MEDS ORDERED: BENZOCAINE/MENTHOL LOZENGE PO PRN (09:00)
[2020-07-29] MEDS ORDERED: MAG HYDROX/AL HYDROX/SIMETH ES 30 ML SUSPENSION UDCUP PO PRN (09:00)
[2020-07-29] MEDS ORDERED: OMEPRAZOLE 20 MG CAPSULE PO PRN (09:00)
[2020-07-29] MEDS ORDERED: IBUPROFEN 600 MG TABLET PO PRN (09:00)
[2020-07-29] MEDS ORDERED: ACETAMINOPHEN 325 MG TABLET PO PRN (09:00)
[2020-07-29] MEDS ORDERED: MAGNESIUM HYDROXIDE SUSPENSION 30 ML UDCUP PO PRN (09:00)
[2020-07-29] MEDS ORDERED: CloNIDine HCL 0.1 MG TABLET PO PRN (09:00)
[2020-07-29] MEDS ORDERED: PETROLATUM,WHITE 28 GM JELLY TP PRN (09:00)
[2020-07-29] MEDS ORDERED: BACITRACIN 28 GM OINTMENT TP PRN (09:00)
[2020-07-29] MEDS ORDERED: DOCUSATE SODIUM 100 MG CAPSULE PO PRN (09:00)
[2020-07-29] MEDS: LITHIUM CARBONATE 300 MG CAPSULE PO SCH (16:04)
[2020-07-29 17:16] VITALS: BP 106/71
[2020-07-29 18:28] VITALS: BP 106/98
[2020-07-29] MEDS: LURASIDONE HCL 80 MG TABLET PO SCH (20:06)
[2020-07-30 01:13] VITALS: BP 100/86
[2020-07-30] MEDS: LITHIUM CARBONATE 300 MG CAPSULE PO SCH ×3 (08:10→16:09)
[2020-07-30 08:15] VITALS: BP 110/61
[2020-07-30 16:18] VITALS: BP 121/84
[2020-07-30] MEDS: LORazepam 2 MG TABLET PO PRN (16:31)
[2020-07-30] MEDS: NICOTINE 14 MG/24 HOUR PATCH TD SCH (17:19)
[2020-07-30] MEDS: LURASIDONE HCL 80 MG TABLET PO SCH (20:14)
[2020-07-31 00:33] VITALS: BP 120/76
[2020-07-31] MEDS: NICOTINE 14 MG/24 HOUR PATCH TD SCH (07:51)
[2020-07-31] MEDS: LORazepam 2 MG TABLET PO PRN (07:51)
[2020-07-31] MEDS: LITHIUM CARBONATE 300 MG CAPSULE PO SCH ×2 (07:51→12:34)
== END 2020-07-31 13:20 | disposition home or self-care (01) | DRG 750 ==
LOC: EMS 17:02 → B3A 21:56
PROVIDERS: ADMIT Psychiatry & Neurology Psychiatry; ATTEND Psychiatry & Neurology Psychiatry
DX: F20.0 Paranoid schizophrenia (principal); F31.9 Bipolar disorder, unspecified; F17.210 Nicotine dependence, cigarettes, uncomplicated; F10.10 Alcohol abuse, uncomplicated; F41.9 Anxiety disorder, unspecified; G47.00 Insomnia, unspecified; K59.00 Constipation, unspecified; F19.10 Other psychoactive substance abuse, uncomplicated; Z79.899 Other long term (current) drug therapy; Z03.818 Encounter for observation for suspected exposure to other biological agents ruled out
CPT/HCPCS: 87426; G0480; J1200; J1630; J2060

== ENCOUNTER 2020-09-03 11:19 | Inpatient (IN) | payer MEDICAID, OTHER ==
[~2020-09-03] VITALS: Ht 162.6 cm; Wt 68.7 kg
[~2020-09-03 11:19] MED LIST changes: -BUSP10TA23 PO; -FLUO-191 PO; -NALT50TA PO
[2020-09-03] MEDS ORDERED: HALOPERIDOL LACTATE 5 MG/ML VIAL IM ONE (12:00)
[2020-09-03] MEDS ORDERED: LORazepam 2 MG/ML VIAL IM ONE (12:00)
[2020-09-03] MEDS ORDERED: DiphenhydrAMINE HCL 50 MG/ML VIAL IM ONE (12:00)
[2020-09-03 14:05] LABS: BASOPHILS % (AUTO) 0.1 % (0.0-2.0); EOSINOPHILS % (AUTO) 0.2 % (1.0-6.0); LYMPHOCYTES % (AUTO) 13.2 % (22.0-44.0); MEAN CORPUSCULAR HEMOGLOBIN 31.4 pg (26.0-34.0); MEAN CORPUSCULAR HGB CONC 34.2 G/dL (31.0-37.0); MEAN CORPUSCULAR VOLUME 92 fL (80-100); MONOCYTES % (AUTO) 6.5 % (2.0-9.0); PLATELET COUNT (AUTO) 339 K/uL (150-450); RED BLOOD CELL COUNT(AUTO) 4.14 MIL/uL (4.00-5.20); RED CELL DISTRIBUTION WIDTH 12.9 % (11.5-14.5)
[2020-09-03 14:23] LABS: ALANINE AMINOTRANSFERASE 23 U/L (12-78); ALBUMIN 4.5 g/dL (3.4-5.0); ALKALINE PHOSPHATASE 73 U/L (46-116); ANION GAP 11 mmol/L (8-16); ASPARTATE AMINOTRANSFERASE 30 U/L (15-37); BILIRUBIN,TOTAL 0.9 mg/dL (0.1-1.0); CALCIUM, TOTAL 9.3 mg/dL (8.8-10.5); CARBON DIOXIDE 26 mmol/L (22-29); CHLORIDE 105 mmol/L (98-107); CREATININE 0.66 mg/dL (0.60-1.30); GLOMERULAR FILTR. RATE CALC > 60 mL/min (>60); GLUCOSE,RANDOM 91 mg/dL (70-110); SODIUM SERUM 142 mmol/L (136-145); TOTAL PROTEIN, SERUM 8.1 g/dL (6.4-8.2); UREA NITROGEN, BLOOD 17 mg/dL (7-18)
[2020-09-03 14:24] LABS: POTASSIUM 2.9 mmol/L (3.5-5.1)
[2020-09-03] MEDS: POTASSIUM CHLORIDE 20 MEQ ER TABLET PO ONE ×2 (14:30→15:17)
[2020-09-03] MEDS ORDERED: ZOLPIDEM TARTRATE 10 MG TABLET PO PRN (15:15)
[2020-09-03] MEDS ORDERED: LORazepam 2 MG TABLET PO PRN (15:15)
[2020-09-03] MEDS ORDERED: HALOPERIDOL 5 MG TABLET PO PRN (15:15)
[2020-09-03 15:59] LABS: COVID AG,FIA SOURCE NASOPHARYNGEAL
[2020-09-03 18:58] VITALS: BP 118/79
[2020-09-03] MEDS ORDERED: INFLUENZA VIRUS VACCINE QVS 2020-21 (6MO+)/PF 60 MCG/0.5 ML SYRINGE IM ONE (19:15)
[2020-09-03] MEDS ORDERED: POTASSIUM CHLORIDE 20 MEQ ER TABLET PO ONE (20:45)
[2020-09-03] MEDS: OLANZapine 10 MG TABLET PO SCH (20:47)
[2020-09-03] MEDS: LITHIUM CARBONATE 300 MG CAPSULE PO SCH (20:47)
[2020-09-04 00:37] VITALS: BP 110/73
[2020-09-04 08:01] VITALS: BP 106/69
[2020-09-04 08:02] LABS: HCG,QUANTITATIVE < 1 mIU/mL (0-6); POTASSIUM 3.8 mmol/L (3.5-5.1)
[2020-09-04] MEDS: OLANZapine 10 MG TABLET PO SCH ×2 (08:23→16:12)
[2020-09-04] MEDS: LITHIUM CARBONATE 300 MG CAPSULE PO SCH ×3 (08:24→16:12)
[2020-09-04] MEDS ORDERED: ALBUTEROL SULFATE HFA 90 MCG/PUFF 8 GM INHALER IH PRN (09:00)
[2020-09-04] MEDS ORDERED: ACETAMINOPHEN 325 MG TABLET PO PRN (09:00)
[2020-09-04] MEDS ORDERED: DOCUSATE SODIUM 100 MG CAPSULE PO PRN (09:00)
[2020-09-04] MEDS ORDERED: GuaiFENesin/D-METHORPHAN [SUGAR-FREE] 200-20MG/10 ML SYRUP UDCUP PO PRN (09:00)
[2020-09-04] MEDS ORDERED: CloNIDine HCL 0.1 MG TABLET PO PRN (09:00)
[2020-09-04] MEDS ORDERED: MAG HYDROX/AL HYDROX/SIMETH ES 30 ML SUSPENSION UDCUP PO PRN (09:00)
[2020-09-04] MEDS ORDERED: LOPERAMIDE HCL 2 MG CAPSULE PO PRN (09:00)
[2020-09-04] MEDS ORDERED: IBUPROFEN 400 MG TABLET PO PRN (09:00)
[2020-09-04] MEDS ORDERED: PETROLATUM,WHITE 28 GM JELLY TP PRN (09:00)
[2020-09-04] MEDS ORDERED: ONDANSETRON HCL 4 MG TABLET PO PRN (09:00)
[2020-09-04] MEDS ORDERED: NICOTINE 14 MG/24 HOUR PATCH TD PRN (09:00)
[2020-09-04] MEDS ORDERED: MAGNESIUM HYDROXIDE SUSPENSION 30 ML UDCUP PO PRN (09:00)
[2020-09-04 16:10] VITALS: BP 114/76
[2020-09-05 00:06] VITALS: BP 110/78
[2020-09-05 08:02] VITALS: BP 110/60
[2020-09-05] MEDS: OLANZapine 10 MG TABLET PO SCH ×2 (08:40→16:00)
[2020-09-05] MEDS: LITHIUM CARBONATE 300 MG CAPSULE PO SCH ×3 (08:40→16:00)
[2020-09-05 15:35] VITALS: BP 102/63
[2020-09-05 16:11] VITALS: BP 102/63
[2020-09-06 00:16] VITALS: BP 100/60
[2020-09-06 07:59] VITALS: BP 115/55
[2020-09-06] MEDS: LITHIUM CARBONATE 300 MG CAPSULE PO SCH ×3 (08:17→17:39)
[2020-09-06] MEDS: OLANZapine 10 MG TABLET PO SCH ×2 (08:17→17:39)
[2020-09-06 08:18] LABS: BASOPHILS % (AUTO) 0.2 % (0.0-2.0); EOSINOPHILS % (AUTO) 1.4 % (1.0-6.0); HEMATOCRIT 37.7 % (36-46); HEMOGLOBIN 12.7 g/dL (12.0-16.0); LYMPHOCYTES # (AUTO) 3.4 K/uL (1.0-4.8); MEAN CORPUSCULAR HEMOGLOBIN 31.4 pg (26.0-34.0); MEAN CORPUSCULAR HGB CONC 33.7 G/dL (31.0-37.0); MEAN CORPUSCULAR VOLUME 93 fL (80-100); MONOCYTES # (AUTO) 0.7 K/uL (0.1-1.0); MONOCYTES % (AUTO) 7.5 % (2.0-9.0); NEUTROPHILS # (AUTO) 5.6 K/uL (1.8-7.7); NEUTROPHILS % (AUTO) 56.9 % (40.0-70.0); PLATELET COUNT (AUTO) 300 K/uL (150-450); RED BLOOD CELL COUNT(AUTO) 4.04 MIL/uL (4.00-5.20); RED CELL DISTRIBUTION WIDTH 13.3 % (11.5-14.5)
[2020-09-06 12:21] VITALS: BP 115/55
[2020-09-06 16:04] VITALS: BP 114/66
[2020-09-06 22:47] LABS: COVID AG,FIA SOURCE NASOPHARYNGEAL
[2020-09-07 05:19] VITALS: BP 132/88
[2020-09-07 08:26] VITALS: BP 106/62
[2020-09-07] MEDS: OLANZapine 10 MG TABLET PO SCH ×2 (11:49→17:00)
[2020-09-07] MEDS: LITHIUM CARBONATE 300 MG CAPSULE PO SCH ×2 (11:49→16:59)
[2020-09-07 19:41] VITALS: BP 96/54
[2020-09-08 04:53] VITALS: BP 106/64
[2020-09-08] MEDS: LITHIUM CARBONATE 300 MG CAPSULE PO SCH (08:18)
[2020-09-08] MEDS: OLANZapine 10 MG TABLET PO SCH (08:18)
[2020-09-08] MEDS ORDERED: OLAN10TA3 PO (09:26)
[2020-09-08] MEDS ORDERED: LITH600 PO (09:26)
[2020-09-08 10:35] VITALS: BP 104/48
== END 2020-09-08 13:00 | disposition home or self-care (01) | DRG 750 ==
LOC: EMS 11:23 → B3A 15:13 → B2S 09-06 15:56
PROVIDERS: ADMIT Psychiatry & Neurology Psychiatry; ATTEND Psychiatry & Neurology Psychiatry
DX: F20.9 Schizophrenia, unspecified (principal); E87.6 Hypokalemia; D72.829 Elevated white blood cell count, unspecified; F12.90 Cannabis use, unspecified, uncomplicated; Z20.828 Contact with and (suspected) exposure to other viral communicable diseases; Z87.891 Personal history of nicotine dependence
CPT/HCPCS: 84132; 87426; 99291; G0480; J1200; J1630; J2060

== ENCOUNTER 2020-10-11 10:12 | Inpatient (IN) | payer MEDICAID ==
[~2020-10-11] VITALS: Ht 162.6 cm; Wt 68.0 kg
[~2020-10-11 10:12] MED LIST changes: -LITH300C3 PO; +LITH600 PO; -LURA80TA2 PO; +OLAN10TA3 PO
[2020-10-11] MEDS ORDERED: PROMETHAZINE HCL 25 MG TABLET PO PRN (11:15)
[2020-10-11] MEDS ORDERED: MAGNESIUM HYDROXIDE SUSPENSION 30 ML UDCUP PO PRN (11:15)
[2020-10-11] MEDS ORDERED: GuaiFENesin/D-METHORPHAN [SUGAR-FREE] 200-20MG/10 ML SYRUP UDCUP PO PRN (11:15)
[2020-10-11] MEDS ORDERED: ZOLPIDEM TARTRATE 10 MG TABLET PO PRN (11:15)
[2020-10-11] MEDS ORDERED: HydrOXYzine PAMOATE 50 MG CAPSULE PO PRN (11:15)
[2020-10-11] MEDS ORDERED: LOPERAMIDE HCL 2 MG CAPSULE PO PRN (11:15)
[2020-10-11] MEDS ORDERED: MAG HYDROX/AL HYDROX/SIMETH ES 30 ML SUSPENSION UDCUP PO PRN (11:15)
[2020-10-11] MEDS ORDERED: TUBERCULIN, PURIFIED PROTEIN DERIVATIVE 5 TU/0.1 ML SYRINGE ID ONE (11:15)
[2020-10-11] MEDS ORDERED: ACETAMINOPHEN 325 MG TABLET PO PRN (11:15)
[2020-10-11] MEDS: LITHIUM CARBONATE 300 MG CAPSULE PO SCH (16:12)
[2020-10-11] MEDS: OLANZapine 5 MG RAPDIS TABLET PO PRN (16:12)
[2020-10-11] MEDS: THIAMINE 100 MG TABLET PO SCH (16:12)
[2020-10-11] MEDS: LORazepam 2 MG TABLET PO PRN (16:12)
[2020-10-11] MEDS ORDERED: DiphenhydrAMINE HCL 50 MG/ML VIAL IM ONE (16:30)
[2020-10-11] MEDS ORDERED: HALOPERIDOL LACTATE 5 MG/ML VIAL IM ONE (16:30)
[2020-10-11] MEDS ORDERED: LORazepam 2 MG/ML VIAL IM ONE (16:30)
[2020-10-11 16:35] VITALS: BP 131/85
[2020-10-11] MEDS ORDERED: INFLUENZA VIRUS VACCINE QVS 2020-21 (6MO+)/PF 60 MCG/0.5 ML SYRINGE IM ONE (19:00)
[2020-10-11] MEDS ORDERED: OLANZapine 5 MG RAPDIS TABLET PO SCH (21:00)
[2020-10-12] MEDS: NALTREXONE HCL 50 MG TABLET PO SCH (08:51)
[2020-10-12] MEDS: LITHIUM CARBONATE 300 MG CAPSULE PO SCH ×3 (08:51→16:41)
[2020-10-12] MEDS: THIAMINE 100 MG TABLET PO SCH ×2 (08:51→16:41)
[2020-10-12] MEDS: FOLIC ACID 1 MG TABLET PO SCH (08:51)
[2020-10-12] MEDS: OMEGA-3/DHA/EPA/FISH OIL 1,000 MG CAPSULE PO SCH (08:51)
[2020-10-12] MEDS: MULTIVITAMINS WITH MINERALS, THERAPEUTIC TABLET PO SCH (08:51)
[2020-10-12] MEDS: LORazepam 2 MG TABLET PO PRN ×2 (08:52→16:42)
[2020-10-12 12:30] VITALS: BP 112/72
[2020-10-12 16:00] VITALS: BP 120/72
[2020-10-12] MEDS: OLANZapine 10 MG RAPDIS TABLET PO SCH (20:21)
[2020-10-13 00:58] VITALS: BP_SYST 109; BP_SYST 76; BP_DIAS 18; BP_DIAS 76
[2020-10-13 04:32] VITALS: BP 105/72
[2020-10-13] MEDS: LORazepam 2 MG TABLET PO PRN ×2 (04:32→08:46)
[2020-10-13] MEDS: MULTIVITAMINS WITH MINERALS, THERAPEUTIC TABLET PO SCH (08:10)
[2020-10-13] MEDS: THIAMINE 100 MG TABLET PO SCH ×2 (08:10→17:08)
[2020-10-13] MEDS: LITHIUM CARBONATE 300 MG CAPSULE PO SCH ×3 (08:10→17:07)
[2020-10-13] MEDS: NALTREXONE HCL 50 MG TABLET PO SCH (08:10)
[2020-10-13] MEDS: FOLIC ACID 1 MG TABLET PO SCH (08:10)
[2020-10-13] MEDS: OMEGA-3/DHA/EPA/FISH OIL 1,000 MG CAPSULE PO SCH (08:10)
[2020-10-13 08:15] VITALS: BP 116/76
[2020-10-13] MEDS: OLANZapine 5 MG RAPDIS TABLET PO PRN (10:22)
[2020-10-13 16:01] VITALS: BP 120/74
[2020-10-13] MEDS: OLANZapine 10 MG RAPDIS TABLET PO SCH (20:58)
[2020-10-13] MEDS: DIVALPROEX SODIUM 500 MG ER TABLET PO SCH (20:58)
[2020-10-14 00:13] VITALS: BP 110/71
[2020-10-14 08:01] VITALS: BP 137/65
[2020-10-14] MEDS: OMEGA-3/DHA/EPA/FISH OIL 1,000 MG CAPSULE PO SCH (09:22)
[2020-10-14] MEDS: THIAMINE 100 MG TABLET PO SCH ×2 (09:22→16:23)
[2020-10-14] MEDS: MULTIVITAMINS WITH MINERALS, THERAPEUTIC TABLET PO SCH (09:22)
[2020-10-14] MEDS: NALTREXONE HCL 50 MG TABLET PO SCH (09:22)
[2020-10-14] MEDS: FOLIC ACID 1 MG TABLET PO SCH (09:22)
[2020-10-14] MEDS: LITHIUM CARBONATE 300 MG CAPSULE PO SCH ×3 (09:22→16:23)
[2020-10-14 16:03] VITALS: BP 120/74
[2020-10-14] MEDS: LORazepam 2 MG TABLET PO PRN (16:23)
[2020-10-14 17:42] LABS: AMPHET/METH SCREEN,URINE POSITIVE (NEGATIVE); BARBITURATE SCREEN, URINE NEGATIVE (NEGATIVE); BENZODIAZEPINES SCREEN,URINE NEGATIVE (NEGATIVE); CANNABINOID SCREEN,URINE NEGATIVE (NEGATIVE); COCAINE SCREEN,URINE NEGATIVE (NEGATIVE); METHADONE SCREEN, URINE NEGATIVE (NEGATIVE); OPIATE SCREEN,URINE NEGATIVE (NEGATIVE)
[2020-10-14 17:44] LABS: APPEARANCE,URINE CLOUDY (CLEAR); BILIRUBIN,URINE NEGATIVE (NEGATIVE); GLUCOSE, URINE (UA) NEGATIVE (NEGATIVE); KETONES,URINE NEGATIVE (NEGATIVE); LEUKOCYTE ESTERASE ,URINE MODERATE (NEGATIVE); NITRATE,URINE POSITIVE (NEGATIVE); OCCULT BLOOD,URINE TRACE (NEGATIVE); PH,URINE 6.5 (5.0-8.0); PHENCYCLIDINE SCREEN,URINE NEGATIVE (NEGATIVE); PROTEIN,URINE NEGATIVE (NEGATIVE); UROBILINOGEN,URINE 0.2 mg/dL (<=1.0)
[2020-10-14 17:53] LABS: BACTERIA,URINE Many /HPF (None Seen); RBC,URINE 0-2 /HPF (0-2)
[2020-10-14 17:54] LABS: CALCIUM OXALATE CRYSTALS,UR Moderate /LPF (None Seen); SQUAMOUS EPITHELIAL CELL,UR Few /LPF (None Seen)
[2020-10-14] MEDS: NITROFURANTOIN/NITROFURAN MAC 100 MG CAPSULE [MACROBID] PO SCH (20:22)
[2020-10-14] MEDS: DIVALPROEX SODIUM 500 MG ER TABLET PO SCH (20:22)
[2020-10-14] MEDS: OLANZapine 10 MG RAPDIS TABLET PO SCH (20:22)
[2020-10-15 01:30] VITALS: BP 109/72
[2020-10-15] MEDS: MULTIVITAMINS WITH MINERALS, THERAPEUTIC TABLET PO SCH (08:28)
[2020-10-15] MEDS: NITROFURANTOIN/NITROFURAN MAC 100 MG CAPSULE [MACROBID] PO SCH ×2 (08:28→17:05)
[2020-10-15] MEDS: FOLIC ACID 1 MG TABLET PO SCH (08:28)
[2020-10-15] MEDS: THIAMINE 100 MG TABLET PO SCH ×2 (08:28→17:05)
[2020-10-15] MEDS: NALTREXONE HCL 50 MG TABLET PO SCH (08:28)
[2020-10-15] MEDS: OMEGA-3/DHA/EPA/FISH OIL 1,000 MG CAPSULE PO SCH (08:28)
[2020-10-15] MEDS: LITHIUM CARBONATE 300 MG CAPSULE PO SCH ×3 (08:28→20:30)
[2020-10-15] MEDS: LORazepam 2 MG TABLET PO PRN (08:28)
[2020-10-15 10:02] LABS: BASOPHILS % (AUTO) 0.3 % (0.0-2.0); EOSINOPHILS % (AUTO) 1.9 % (1.0-6.0); HEMATOCRIT 37.5 % (36-46); HEMOGLOBIN 12.3 g/dL (12.0-16.0); LYMPHOCYTES # (AUTO) 2.5 K/uL (1.0-4.8); LYMPHOCYTES % (AUTO) 40.2 % (22.0-44.0); MEAN CORPUSCULAR HEMOGLOBIN 30.6 pg (26.0-34.0); MEAN CORPUSCULAR HGB CONC 32.8 G/dL (31.0-37.0); MEAN CORPUSCULAR VOLUME 93 fL (80-100); MONOCYTES # (AUTO) 0.3 K/uL (0.1-1.0); MONOCYTES % (AUTO) 5.2 % (2.0-9.0); NEUTROPHILS # (AUTO) 3.3 K/uL (1.8-7.7); NEUTROPHILS % (AUTO) 52.4 % (40.0-70.0); PLATELET COUNT (AUTO) 296 K/uL (150-450); RED BLOOD CELL COUNT(AUTO) 4.02 MIL/uL (4.00-5.20); RED CELL DISTRIBUTION WIDTH 13.2 % (11.5-14.5)
[2020-10-15 10:12] LABS: HEMOGLOBIN A1C 5.3 % (3.8-5.6)
[2020-10-15 10:18] LABS: LITHIUM 0.94 mmol/L (0.60-1.20)
[2020-10-15 10:40] LABS: ALANINE AMINOTRANSFERASE 13 U/L (12-78); ALKALINE PHOSPHATASE 61 U/L (46-116); ANION GAP 3 mmol/L (8-16); ASPARTATE AMINOTRANSFERASE 11 U/L (15-37); BILIRUBIN,TOTAL 0.1 mg/dL (0.1-1.0); CALCIUM, TOTAL 8.7 mg/dL (8.8-10.5); CARBON DIOXIDE 26 mmol/L (22-29); CHLORIDE 106 mmol/L (98-107); CHOL/HDL RATIO 2.8 (3.9-5.7); CHOLESTEROL 116 mg/dL (131-200); CREATININE 0.68 mg/dL (0.60-1.30); FREE T4 (FREE THYROXINE) 0.97 ng/dL (0.76-1.46); GLOMERULAR FILTR. RATE CALC > 60 mL/min (>60); GLUCOSE,RANDOM 115 mg/dL (70-110); HCG,QUANTITATIVE < 1 mIU/mL (0-6); HDL CHOLESTEROL 42 mg/dL (40-60); LDL CHOL (CALC.) 55 mg/dL (0-130); POTASSIUM 4.1 mmol/L (3.5-5.1); SODIUM SERUM 135 mmol/L (136-145); THYROID STIMULATING HORMONE 0.39 uIU/mL (0.36-3.74); TOTAL PROTEIN, SERUM 6.1 g/dL (6.4-8.2); TRIGLYCERIDES 94 mg/dL (15-150); UREA NITROGEN, BLOOD 10 mg/dL (7-18); VALPROIC ACID 67 mcg/mL (50-100)
[2020-10-15 12:52] VITALS: BP 118/76
[2020-10-15 16:14] VITALS: BP 114/66
[2020-10-15] MEDS: OLANZapine 10 MG RAPDIS TABLET PO SCH (20:30)
[2020-10-15] MEDS: DIVALPROEX SODIUM 500 MG ER TABLET PO SCH (20:30)
[2020-10-16 01:54] VITALS: BP 115/60
[2020-10-16 08:21] VITALS: BP 118/73
[2020-10-16] MEDS: THIAMINE 100 MG TABLET PO SCH ×2 (08:22→16:36)
[2020-10-16] MEDS: NITROFURANTOIN/NITROFURAN MAC 100 MG CAPSULE [MACROBID] PO SCH ×2 (08:23→16:36)
[2020-10-16] MEDS: FOLIC ACID 1 MG TABLET PO SCH (08:23)
[2020-10-16] MEDS: MULTIVITAMINS WITH MINERALS, THERAPEUTIC TABLET PO SCH (08:23)
[2020-10-16] MEDS: NALTREXONE HCL 50 MG TABLET PO SCH (08:23)
[2020-10-16] MEDS: LORazepam 2 MG TABLET PO PRN ×2 (08:23→16:39)
[2020-10-16] MEDS: OMEGA-3/DHA/EPA/FISH OIL 1,000 MG CAPSULE PO SCH (08:23)
[2020-10-16 16:22] VITALS: BP 116/72
[2020-10-16] MEDS: DIVALPROEX SODIUM 500 MG ER TABLET PO SCH (20:28)
[2020-10-16] MEDS: OLANZapine 10 MG RAPDIS TABLET PO SCH (20:28)
[2020-10-16] MEDS: LITHIUM CARBONATE 300 MG CAPSULE PO SCH (20:29)
[2020-10-17 00:34] VITALS: BP 102/79
[2020-10-17 04:06] LABS: RPR QUANT. (TITER) Reactive (NonRea<1:1)
[2020-10-17 08:40] VITALS: BP 111/69
[2020-10-17] MEDS: OMEGA-3/DHA/EPA/FISH OIL 1,000 MG CAPSULE PO SCH (09:26)
[2020-10-17] MEDS: NITROFURANTOIN/NITROFURAN MAC 100 MG CAPSULE [MACROBID] PO SCH ×2 (09:26→16:23)
[2020-10-17] MEDS: MULTIVITAMINS WITH MINERALS, THERAPEUTIC TABLET PO SCH (09:26)
[2020-10-17] MEDS: THIAMINE 100 MG TABLET PO SCH ×2 (09:26→16:23)
[2020-10-17] MEDS: FOLIC ACID 1 MG TABLET PO SCH (09:26)
[2020-10-17] MEDS: NALTREXONE HCL 50 MG TABLET PO SCH (09:33)
[2020-10-17 16:12] VITALS: BP 114/70
[2020-10-17] MEDS: LITHIUM CARBONATE 300 MG CAPSULE PO SCH (20:00)
[2020-10-17] MEDS: OLANZapine 10 MG RAPDIS TABLET PO SCH (20:00)
[2020-10-17] MEDS: DIVALPROEX SODIUM 500 MG ER TABLET PO SCH (20:00)
[2020-10-18 04:23] VITALS: BP 110/68
[2020-10-18 08:22] VITALS: BP 112/72
[2020-10-18] MEDS: NITROFURANTOIN/NITROFURAN MAC 100 MG CAPSULE [MACROBID] PO SCH (08:55)
[2020-10-18] MEDS: NALTREXONE HCL 50 MG TABLET PO SCH (08:55)
[2020-10-18] MEDS: FOLIC ACID 1 MG TABLET PO SCH (08:55)
[2020-10-18] MEDS: OMEGA-3/DHA/EPA/FISH OIL 1,000 MG CAPSULE PO SCH (08:55)
[2020-10-18] MEDS: THIAMINE 100 MG TABLET PO SCH (08:55)
[2020-10-18] MEDS: MULTIVITAMINS WITH MINERALS, THERAPEUTIC TABLET PO SCH (08:55)
[2020-10-18] MEDS ORDERED: LITH300C3 PO (14:21)
[2020-10-18] MEDS ORDERED: OMEG-135 PO (14:21)
[2020-10-18] MEDS ORDERED: OLAN10TA22 PO (14:21)
[2020-10-18] MEDS ORDERED: NALT50TA PO (14:21)
[2020-10-18] MEDS ORDERED: MELA5TAB3 PO (14:21)
[2020-10-18] MEDS ORDERED: DIVA-80 PO (14:21)
[2020-10-18] MEDS ORDERED: MACR100 PO (14:28)
== END 2020-10-18 21:37 | disposition home or self-care (01) | DRG 750 ==
LOC: B2S 12:59 → B3A 18:33
PROVIDERS: ADMIT Psychiatry & Neurology Psychiatry; ATTEND Psychiatry & Neurology Psychiatry
DX: F25.1 Schizoaffective disorder, depressive type (principal); R45.851 Suicidal ideations; Z91.19 Patient's noncompliance with other medical treatment and regimen; Z59.0 Homelessness; F17.210 Nicotine dependence, cigarettes, uncomplicated; F12.90 Cannabis use, unspecified, uncomplicated; R73.03 Prediabetes; F19.10 Other psychoactive substance abuse, uncomplicated; F31.9 Bipolar disorder, unspecified; Z28.21 Immunization not carried out because of patient refusal
CPT/HCPCS: 80307; 83036; 84439; 84443; 86592; 86593; 86780; 87086; J1200; J1630; J2060

== ENCOUNTER 2020-11-02 15:12 | Emergency (ER) | payer MEDICAID, OTHER ==
[~2020-11-02] VITALS: Ht 162.6 cm; Wt 72.7 kg
[~2020-11-02 15:12] MED LIST changes: +DIVA-80 PO; +LITH300C3 PO; -LITH600 PO; +MACR100 PO; +MELA5TAB3 PO; +NALT50TA PO; +OLAN10TA22 PO; -OLAN10TA3 PO; +OMEG-135 PO
[2020-11-02 17:05] VITALS: BP 104/64
== END 2020-11-02 17:07 | disposition home or self-care (01) ==
LOC: EMS 15:12
DX: L73.9 Follicular disorder, unspecified (principal); F31.9 Bipolar disorder, unspecified; F20.9 Schizophrenia, unspecified; F17.210 Nicotine dependence, cigarettes, uncomplicated; F12.90 Cannabis use, unspecified, uncomplicated; F19.90 Other psychoactive substance use, unspecified, uncomplicated
CPT/HCPCS: Z7502